=== PATIENT | female | born 2000 | race Two or more races ===

== ENCOUNTER 2021-03-29 02:12 | Emergency (ER) | payer OTHER ==
[~2021-03-29] VITALS: Ht 165.1 cm; Wt 94.5 kg
[2021-03-29] MEDS ORDERED: METHYLNALTREXONE 12 MG/0.6 ML SYR SQ ONE ×2 (03:00→03:22)
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
[2021-03-29 03:29] LABS: BASOPHILS % (AUTO) 0 % (0-1); EOSINOPHILS % (AUTO) 0 % (1-7); LYMPHOCYTES % (AUTO) 16 % (22-44); MEAN CORPUSCULAR HGB CONC 34.9 g/dL (32.4-35.8); MEAN PLATELET VOLUME 8.6 fL (7.4-10.4); MONOCYTES % (AUTO) 5 % (2-9); NEUTROPHILS % (AUTO) 79 % (42-75); PLATELET COUNT 287 x10^3/uL (130-400); RED CELL DISTRIBUTION WIDTH 13.2 % (9.6-15.2)
[2021-03-29 03:31] LABS: MD NO
[2021-03-29 03:37] LABS: ALANINE AMINOTRANSFERASE 171 U/L (12-78); ALBUMIN 3.7 g/dL (3.4-5.0); ANION GAP 4 mmol/L (5-15); CALCIUM 8.9 mg/dL (8.5-10.1); CHLORIDE 104 mmol/L (98-107); CREATININE 0.94 mg/dL (0.55-1.02)
[2021-03-29] MEDS ORDERED: ONDANSETRON 2MG/ML, 2ML ONE (03:40)
[2021-03-29] MEDS ORDERED: KETOROLAC 30 MG/1 ML ONE (03:40)
[2021-03-29 03:42] LABS: ALKALINE PHOSPHATASE 95 U/L (45-117); BILIRUBIN,TOTAL 0.6 mg/dL (0.2-1.0); TOTAL PROTEIN 7.9 g/dL (6.4-8.2)
[2021-03-29] MEDS ORDERED: SODIUM CHLORIDE 0.9% 1,000ML IVBOLUS ONE (04:00)
[2021-03-29] MEDS ORDERED: ONDANSETRON 2MG/ML, 2ML IVPush ONE (04:00)
[2021-03-29] MEDS ORDERED: KETOROLAC 30 MG/1 ML IVPush ONE (04:00)
--- NOTE | 2021-03-29 04:35 | NUR ---
PT AMBULATED TO THE RESTROOM FOR THIRD TIME FOR UA ATTEMPT AND BM ATTEMPT
--- NOTE | 2021-03-29 04:36 | NUR ---
Miles quesada in [facility] - 03/29/21 at 0438 by FERN PT AMBULATED TO THE RESTROOM FOR THIRD TIME FOR UA ATTEMPT AND BM ATTEMPT
[2021-03-29] MEDS ORDERED: MAGNESIUM CITRATE 300ML ORAL SOL ONE (05:11)
[2021-03-29 05:15] VITALS: BP 106/46
[2021-03-29] MEDS ORDERED: MAGNESIUM CITRATE 300ML ORAL SOL PO PRN (05:30)
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
== END 2021-03-29 05:55 | disposition home or self-care (01) ==
LOC: ED 05:49
DX: K59.00 Constipation, unspecified (principal); R10.84 Generalized abdominal pain
CPT/HCPCS: 36415; 74021; 80053; 83690; 84703; 85025; 96361; 96372; 96374; 96375; 99284; J1885; J2405; J7030